=== PATIENT | female | born 1970 | race Caucasian/White ===

== ENCOUNTER 2019-10-05 12:43 | Outpatient (REF) | payer OTHER, SELFPAY ==
--- NOTE | 2019-10-05 11:30 | PAPFT_PTH ---
PATIENT: Molly Jara LOC: [facility] U#:[id number] AGE/SX: 49/F ROOM: RE10/05/[address]: Purnima Lima MD : 1970 BED: DIS: 10/05/2019 SPEC #: [id number] RECD: 10/06/19 12:54 STATUS: NESTOR REKatelynn #: [id number] ALYSON: 10/05/19 11:[address]: Purnima Lima DEPT: [facility] Cytology RECD BY: Mima Rosario Tissues: 1 - CX/ENDOCX FOR PAP SMEARS Procedures: PAP THIN PREP/UVM Screening HPV DNA PROBE Comments: [id number]
== END 2019-10-05 13:03 ==
LOC: LBN 12:43
PROVIDERS: PCP Family Medicine; Visit Provider Family Medicine
DX: Z12.4 Encounter for screening for malignant neoplasm of cervix (principal); Z11.51 Encounter for screening for human papillomavirus (HPV)
CPT/HCPCS: 88142; 87624

== ENCOUNTER 2020-10-18 01:13 | Outpatient (CLI) | payer OTHER, SELFPAY ==
[2020-10-18 14:49] LABS: Calculated LDL 120 mg/dL (<100); Cholesterol 232 mg/dL (<200); Glucose 83 mg/dL (74-106); HDL Cholesterol 104 mg/dL (40-60); Triglyceride 44 mg/dL (<150)
== END 2020-10-18 01:33 ==
PROVIDERS: PCP Family Medicine; Visit Provider Family Medicine
DX: Z13.1 Encounter for screening for diabetes mellitus (principal); Z13.220 Encounter for screening for lipoid disorders
CPT/HCPCS: 36415; 80061; 82947

== ENCOUNTER 2021-05-22 01:29 | Outpatient (CLI) | payer OTHER, SELFPAY ==
--- NOTE | 2021-05-22 06:30 | DI.MAMMO_ITS ---
Exam(s) MAMMO SCREENING EXAM: MAMMO SCREENING CLINICAL HISTORY: screening,Z12.39 TECHNIQUE: Mammograms were interpreted according to the usual protocol including computer analysis w [employer] CAD system, tomosynthesis and C-view imaging. COMPARISON: No exams were available for comparison. Baseline examination. FINDINGS: The breasts are composed of scattered fibroglandular densities, Breast Density category B. No suspicious masses or suspicious microcalcifications are seen. No skin thickening or abnormal axillary lymph nodes are seen. IMPRESSION: BI-RADS Category 1, Negative mammogram Yearly screening mammography is recommended. Breast Density - Category B, scattered fibroglandular densities. A negative radiographic report should not delay biopsy if a dominant or clinically suspicious mass is present. Up to ten percent of cancers are not identified on mammography. A negative report may reinforce clinical impression. Adenosis and dense breasts may obscure an underlying neoplasm. False positive reports average 6 to 10%. Patient will receive a letter notifying them of these results.
== END 2021-05-22 01:49 ==
PROVIDERS: PCP Family Medicine; Visit Provider Family Medicine
DX: Z12.31 Encounter for screening mammogram for malignant neoplasm of breast (principal)
CPT/HCPCS: 77063; 77067

== ENCOUNTER 2021-11-07 03:46 | Outpatient (CLI) | payer OTHER, SELFPAY ==
[2021-11-07 08:21] LABS: HCT 39.2 % (36.0-46.0); HGB 12.2 g/dL (11.2-15.7); MCH 27.2 pg (27.0-33.0); MCHC 31.1 % (32.0-36.0); MCV 87.5 fL (80-95); MPV 9.3 fL (8.0-11.0); Platelet Count 271 10^3/uL (130-400); RBC 4.48 10^6/uL (3.93-5.22); RDW 13.6 % (11.7-14.6); RDW-SD 43.8 fL; WBC 5.01 10^3/uL (4.4-10.8)
[2021-11-07 09:17] LABS: Iron 41 ug/dL (50-170); Total Iron Binding Capacity 319 ug/dL (250-450); Transferrin Sat 13 % (15-50)
[2021-11-07 09:37] LABS: ALT 36 U/L (14-59); AST 28 U/L (15-37); Albumin 3.7 g/dL (3.4-5.0); Alkaline Phosphatase 84 U/L (46-116); Anion Gap 4.3 mmol/L (3-11); BUN 12 mg/dL (7-18); Bilirubin, Total 0.2 mg/dL (0.2-1.0); CO2 26.7 mmol/L (21.0-32.0); CREATININE 0.8 mg/dL (0.55-1.02); Calcium 8.7 mg/dL (8.5-10.1); Calculated LDL 101 mg/dL (<100); Chloride 106 mmol/L (98-107); Cholesterol 226 mg/dL (<200); Glucose 91 mg/dL (74-106); HDL Cholesterol 116 mg/dL (40-60); Potassium 4.4 mmol/L (3.5-5.1); Sodium 137 mmol/L (136-145); Total Protein 7.3 g/dL (6.4-8.2); Triglyceride 47 mg/dL (<150)
[2021-11-07 18:00] LABS: Ferritin 6 ng/mL (10-291)
== END 2021-11-07 03:47 | disposition home or self-care (01) ==
LOC: LBO 03:46
PROVIDERS: PCP Family Medicine; Visit Provider Family Medicine
DX: D50.9 Iron deficiency anemia, unspecified (principal); E78.5 Hyperlipidemia, unspecified; I10 Essential (primary) hypertension
CPT/HCPCS: 80053; 80061; 85027; 82728; 83540; 83550

== ENCOUNTER → 2023-05-21 00:40 | Outpatient (CLI) | payer OTHER, SELFPAY ==
--- NOTE | 2023-05-21 06:45 | DI.MAMMO_ITS ---
Exam(s) MAMMO SCREENING EXAM: MAMMO SCREENING CLINICAL HISTORY: screening, Z12.39 TECHNIQUE: Mammograms were interpreted according to the usual protocol including computer analysis w [employer] CAD system, tomosynthesis and C-view imaging. COMPARISON: 2020 FINDINGS: The breasts are composed of scattered fibroglandular densities, Breast Density category B. No suspicious masses or suspicious microcalcifications are seen. No skin thickening or abnormal axillary lymph nodes are seen. There has been no significant change from prior exams. IMPRESSION: BI-RADS Category 1, Negative mammogram Yearly screening mammography is recommended. Breast Density - Category B, scattered fibroglandular densities. A negative radiographic report should not delay biopsy if a dominant or clinically suspicious mass is present. Up to ten percent of cancers are not identified on mammography. A negative report may reinforce clinical impression. Adenosis and dense breasts may obscure an underlying neoplasm. False positive reports average 6 to 10%. Patient will receive a letter notifying them of these results.
== END ==
PROVIDERS: PCP Nurse Practitioner Family; Visit Provider Nurse Practitioner Family
DX: Z12.31 Encounter for screening mammogram for malignant neoplasm of breast (principal)
CPT/HCPCS: 77063; 77067

== ENCOUNTER 2024-03-12 13:01 | Emergency (ER) | payer OTHER, SELFPAY ==
--- NOTE | 2024-03-12 13:45 | DI.RAD_ITS ---
Exam(s) XR ANKLE RT COMPLETE XR TIB/FIB RT EXAM: XR ANKLE RT COMPLETE CLINICAL HISTORY: pain and swelling. TECHNIQUE: 2D digital imaging was performed. Three views of the ankle. Two views of the tibia and fibula COMPARISON: CR,XR XR TIB/FIB RT from 03/12/2024 CR XR ANKLE LT COMPLETE from 03/12/2024 FINDINGS: BONES: Comminuted fracture of distal fibula with lateral angulation and displacement. Fracture exten ding transversely through the medial malleolus with significant separation. Additional fracture exte nding in the coronal plane through the posterior malleolus. Abnormal lateral and posterior dislocat ion of the talus with respect to the distal tibia. No additional fractures are seen more superiorly. Talar dome appears intact. No bony destructive lesion is seen. JOINTS: Significant disruption of ankle mortise. Knee is unremarkable. SOFT TISSUE: Marked soft tissue swelling. IMPRESSION: Severely displaced trimalleolar fracture with posterolateral tibiotalar dislocation. DATA REPOSITORY: RADIATION DOSE DELIVERED:
[2024-03-12 13:59] VITALS: BP 120/82; PULSE 86; RESP 16; TEMP 36.6; O2SAT 98
[2024-03-12] MEDS: HYDROmorphone 2 MG/ML SYR 1 MG IVP (14:01)
--- NOTE | 2024-03-12 15:12 | DI.VRAD_ITS ---
Addendum created by Amaury Chowdhury MD on 03/12/2024 3:14:32 PM EDT: Addendum: Displaced posterior malleolar fracture Initial report created on 03/12/2024 3:12:25 PM EDT: PROCEDURE INFORMATION: Exam: XR Right Ankle Exam date and time: 03/12/2024 2:07 PM Age: 53 years old Clinical indication: Injury or trauma; Fall; Fracture, traumatic; Open fracture, type i or ii; Tibia and ankle; Right; Not specified TECHNIQUE: Imaging protocol: Radiologic exam of the right ankle. Views: 3 or more views. COMPARISON: CR XR TIB/FIB RT 03/12/2024 2:07 PM FINDINGS: Bones/joints: Comminuted displaced spiral oblique fracture of the distal fibula.. Displaced fracture of the medial malleolus. Dislocation of the tibiotalar joint. The talus is posterior and lateral to the tibia.. Soft tissues: Extensive soft tissue swelling of the ankle IMPRESSION: 1. Comminuted displaced spiral oblique fracture of the distal fibula.. 2. Displaced fracture of the medial malleolus. 3. Dislocation of the tibiotalar joint. The talus is posterior and lateral to the tibia.. Dictated and Authenticated by: Amaury Chowdhury MD. Ordering:HI Guillermo MD
[2024-03-12] MEDS: Ketamine 500 MG/10 ML VIAL 71 MG IVP (15:14)
--- NOTE | 2024-03-12 15:14 | DI.VRAD_ITS ---
PROCEDURE INFORMATION: Exam: XR Right Tibia and Fibula Exam date and time: 03/12/2024 2:07 PM Age: 53 years old Clinical indication: Injury or trauma; Fall; Fracture, traumatic; Open fracture, type i or ii; Fibula and ankle; Right; Not specified TECHNIQUE: Imaging protocol: Radiologic exam of the right tibia and fibula. Views: 2 views. COMPARISON: No relevant prior studies available. FINDINGS: Bones/joints: Displaced spiral oblique fracture in the distal fibula. Displaced medial malleolar fracture. . Tibiotalar dislocation. . Posterior malleolar fracture. Soft tissues: Soft tissue swelling of the ankle IMPRESSION: 1. Displaced spiral oblique fracture in the distal fibula and posterior malleolar fracture. . 2. Displaced medial malleolar fracture. . 3. Tibiotalar dislocation. Dictated and Authenticated by: Amaury Chowdhury MD. Ordering:HI Guillermo MD
--- NOTE | 2024-03-12 15:15 | DI.RAD_ITS ---
Exam(s) XR ANKLE RT COMPLETE EXAM: XR ANKLE RT COMPLETE CLINICAL HISTORY: post reduction. TECHNIQUE: 2D digital imaging was performed. Three views. COMPARISON: CR,XR XR ANKLE RT COMPLETE from 03/12/2024 FINDINGS: A splint has been placed. There is improved alignment of the previously noted trimalleolar fracture. The talus is now located beneath the distal tibia. DATA REPOSITORY: RADIATION DOSE DELIVERED:
[2024-03-12 15:23] VITALS: BP 175/85; PULSE 129; RESP 19; O2SAT 96
--- NOTE | 2024-03-12 15:23 | W.ED.PROC ---
Date of service: 03/12/24 Time of Service: 15:23 Procedures Procedural Sedation Presedation Evaluation: NPO since this AM; procedural sedation for right trimal fracture lower extremity; consent obtained, timeout performed; respiratory and nursing staff at bedside ASA Class: I Preparation: cardiac monitor technician applied, pulse oximeter, capnometry used, suction/airway equipment at bedside and IV secured Ketamine: IV Ketamine dose (mg): 71 Patient Tolerated Procedure: well Complications: none Additional Comments: patient resting, tolerated procedure well, returning to baseline, will continue to monitor hemodynamic and respiratory status,will obtain post reduction xray Medical Decision Making Quality:SDOH Health Related Social Needs: No Data to Display
--- NOTE | 2024-03-12 15:25 | NUR.NOTE ---
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 Pt tolerated well without obvious discomfort or pain. in room at bedside. RT present. Pt continues on monitor with end tidal CO2 monitor in place. Will continue to monitor as sedation wears off.
--- NOTE | 2024-03-12 15:37 | RESPIRATORY ---
Respiratory Therapy on emergency stand by for conscious sedation. Ambu bag, ETC02, suction, and nasal airway at bedside. Patient maintained Sp02 97-98% on room air. Procedure tolerated well.
--- NOTE | 2024-03-12 15:59 | DI.VRAD_ITS ---
PROCEDURE INFORMATION: Exam: XR Right Ankle Exam date and time: 03/12/2024 3:32 PM Age: 53 years old Clinical indication: Other: Post reduction TECHNIQUE: Imaging protocol: Radiologic exam of the right ankle. Views: 3 or more views. COMPARISON: CR XR ANKLE RT COMPLETE 03/12/2024 2:07 PM FINDINGS: Bones/joints: Improved alignment of a distal fibular fracture and medial malleolar fracture and posterior malleolar fracture .. Improved alignment of the tibiotalar joint.. Soft tissues: Soft tissue swelling of the ankle IMPRESSION: 1. Improved alignment of a distal fibular fracture and medial malleolar fracture and posterior malleolar fracture .. 2. Improved alignment of the tibiotalar joint.. Dictated and Authenticated by: Amaury Chowdhury MD. Ordering:HI Guillermo MD
[2024-03-12 16:35] VITALS: BP 124/70; PULSE 72; RESP 16; TEMP 36.6; O2SAT 98
[2024-03-12] MEDS: Ondansetron 4 MG/2 ML VIAL (16:38)
--- NOTE | 2024-03-12 21:35 | W.ED.GENAD ---
Discharge Plan Disposition Patient Disposition: Home Condition: Stable Discharge Details Clinical Impression: Closed trimalleolar fracture Primary Care Provider: Alfredo Odom ED Provider: Mima Escalante Home Meds and New Rx's Prescriptions: New oxycodone 5 mg capsule 5 mg PO Q8H PRNQty: 10 0RF Continued cholecalciferol (vitamin D3) 50 mcg (2,000 unit) tablet,chewable 50 mcg PO BID zinc 50 mg tablet 50 mg PO DAILY magnesium glycinate 100 mg tablet 200 mg PO BID Discharge Instructions Instructions: How to Use Crutches, Cast Care ED Additional Instructions: Take ibuprofen 600 mg every dialysis. Take Tylenol 650 mg every 6 hours, do not exceed 4 g of Tylenol daily I am giving you a prescription for oxycodone, this medication can cause addiction, constipation, and you should not operate your vehicle for 8 hours after taking this medication, please use sparingly Orthopedics will call you tomorrow if you do not hear from them by the end of the day my recommendation will be to call the office for follow-up If you have pain my recommendation is to elevate your ankle and place ice on it with Tylenol and ibuprofen orally Please return to develop worsening pain, strength or sensation change, or discoloration to your toes Referrals: Valerio Mcdaniels MD [ [facility] STAFF PHYSICIAN] - Discharge Data Discharge Date/Time-TO BE ENTERED AT DEPARTURE: 03/12/24 16:38 HPI General Date/Time Provider Initiated Documentation: 03/12/24 13:27. HPI Narrative: This 53-year-old female with past medical history of hepatitis presents with report of right ankle injury. She states she stepped on 1 step and twisted her ankle. She has been able to walk on it since the event occurred. She denies any additional complaints. Tetanus is up-to-date. She denies any knee pain. Denies any head injury or additional required injuries. Related Data Home Medications Medication Instructions Recorded Confirmed magnesium glycinate 100 mg tablet 200 mg PO BID 11/06/23 02/23/24 zinc 50 mg tablet 50 mg PO DAILY 11/06/23 02/23/24 cholecalciferol (vitamin D3) 50 50 mcg PO BID 02/23/24 02/23/24 mcg (2,000 unit) chewable tablet oxycodone 5 mg capsule 5 mg PO Q8H PRN #10 caps 03/12/24 Previous Rx's Medication Instructions Recorded oxycodone 5 mg capsule 5 mg PO Q8H PRN #10 caps 03/12/24 Allergies Allergy/AdvReac Type Severity Reaction Status Date / Time codeine Allergy Intermediate Skin Rash Verified 02/23/24 08:50 latex Allergy Intermediate Skin Rash Verified 02/23/24 08:50 ampicillin Allergy Unknown Hives Verified 02/23/24 08:50 Penicillins AdvReac Unknown Nausea Verified 02/23/24 08:50 General Stated Complaint: Orthopedic MARY: 3 Exam Narrative Exam Narrative: 53-year-old female alert and oriented, acute distress secondary to right ankle pain. No visible signs of head trauma or neck discomfort, pupils equal round reactive to light and accommodation distal pulses intact to right lower extremity, no respiratory distress, cardiac rate rhythm regular, no abdominal tenderness, no lumbar spine or thoracic spine tenderness, small abrasion which is superficial, no evidence of open fracture to right ankle on the medial aspect, examined both the patient and x-ray and there is no evidence of this being an open fracture clinically, obvious deformity noted to ankle, capillary refill, pulses, and sensation remain intact. Mild tenderness to right knee Course Vital Signs Vital signs: Vital Signs Temperature 36.6 C 03/12/24 13:59 Pulse 86 03/12/24 13:59 Respiratory Rate 16 03/12/24 13:59 Blood Pressure 120/82 03/12/24 13:59 Pulse Oximetry 98 03/12/24 13:59 Temperature 36.6 C 03/12/24 16:35 Temperature Source Tympanic 03/12/24 13:59 Pulse 72 03/12/24 16:35 Respiratory Rate 16 03/12/24 16:35 Respiratory Effort Normal 03/12/24 14:53 Blood Pressure 124/70 03/12/24 16:35 Blood Pressure Position Sitting 03/12/24 13:59 Pulse Oximetry 98 03/12/24 16:35 Oxygen Delivery Method Room Air 03/12/24 15:23 Oxygen Flow Rate 0 03/12/24 15:23 Pain Level 2 03/12/24 16:35 Procedures Orthopedic Fracture Reduction Fracture #1: Time Out Performed: Yes Side: right Fracture Reduction Location: tibia and fibula Analgesia: procedural sedation Technique: direct manipulation and finger traps Post Reduction X-rays Demonstrate: acceptable reduction Post-reduction neuro exam: intact Post-reduction vascular exam: intact Splint Applied: Yes Patient Tolerated Procedure: well Medical Decision Making 53-year-old female presenting with trimalleolar fracture dislocation. Neurovascularly intact. No evidence of open fracture clinically. X-rays show evidence of trimalleolar fracture with ankle dislocation. per my review and radiology interpretation where available Case was discussed with Dr. Mcdaniels and reduction was performed with good effect. Pre and post films reviewed ankle with Dr. Mcdaniels will follow-up with patient in the close outpatient setting. Patient tolerated procedural sedation extremely well, please see Dr. William Victoria's note regarding procedural sedation. Posterior and stirrup splint were applied and patient remained neurovascularly intact pre and postprocedure. Patient was recovered and deemed stable for discharge home. Small amount of IV analgesia with risk of addiction reviewed. We discussed appropriate return precautions in detail and patient and expressed understanding. Crutches supplied Quality:SDOH Health Related Social Needs: No Data to Display PFSH All Active Problems (Updated 03/12/24 @ 15:49 by RICARDO Novak) Closed trimalleolar fracture (Acute) Hypertension (Chronic) Eczema (Acute) Low back pain with right-sided sciatica (Acute) 2021- mild managed with exercises Venous stasis (Acute) mild edema -legs Hyperlipidemia (Acute) 2020- high HDL Iron deficiency anemia (Acute 12/22/12) aasoc with [employer] losses Substance abuse (Acute) H/O IV DRUG ABUSE Viral hepatitis C (Acute 04/06/13) 2020-tx/resolved Medical History Contact dermatitis Menorrhagia (03/06/15) Hepatitis C Surgical History Hysteroscopy (03/14/15) FIBROID RESECTION (03/14/15) Dilation and curettage (03/14/15) Family History Mother Essential hypertension Father Diabetes Alcohol abuse Essential hypertension Neoplasm LIVER Grandmother Essential hypertension Stroke Grandfather Essential hypertension Stroke Grandmother Essential hypertension Neoplasm Social History Smoking/Tobacco Use Status: Former Tobacco Use tobacco type: cigarettes Quit Date: 09/20/99 Tobacco: How many years used: 15 Second Hand Exposure: Yes Smoking risk assessment performed?: Yes Alcohol Intake: former Drug use: Never Substance use type: does not use Caregiver/Support person: No Household members: spouse Housing: house Communication Needs: Corrective Lenses Do you need help understanding health information?: Never Pets and animals: Yes Pets and animals: cat(s) Sexually active: Yes Do you think of yourself as: straight/heterosexual Current gender identity: female What is your relationship status?: How often do you talk on the phone with friends or family?: decline to answer How often do you get together with friends or relatives?: decline to answer How often do you attend hindu or christianity services?: decline to answer Do you belong to any clubs or organized social groups?: decline to answer Panel score (0-1 are the most socially isolated patients): 1 What type of physical activity do you participate in: bicycling and yoga Duration: 30-45 minutes/day Frequency: daily Yasmine/Oriental Orthodox: None Special yasmine needs: No Seatbelt use: always Helmet use: Yes Helmet use: always Drive intox or ride w/intox jukebox route driver: No Do you feel safe at home: Yes Do you feel safe in your relationship?: Yes
== END 2024-03-12 16:38 | disposition home or self-care (01) ==
PROVIDERS: Emergency Provider Physician Assistant; PCP Nurse Practitioner Family
DX: S82.851A Displaced trimalleolar fracture of right lower leg, initial encounter for closed fracture (principal); I10 Essential (primary) hypertension; E78.5 Hyperlipidemia, unspecified; Z87.891 Personal history of nicotine dependence; X50.1XXA Overexertion from prolonged static or awkward postures, initial encounter; Y93.01 Activity, walking, marching and hiking; Y92.89 Other specified places as the place of occurrence of the external cause
CPT/HCPCS: 27818; 99156; 99284; 73590; 73610; J1170; J2405

== ENCOUNTER 2024-03-15 06:12 | Day surgery (SDC) | payer OTHER, SELFPAY ==
[2024-03-15] VITALS (15 sets, daily range): BP systolic 113–147; BP diastolic 61–96; PULSE 60–76; RESP 10–18; TEMP 36.2–37.3; O2SAT 95–100; BMI 28.3
[2024-03-15] MEDS: Acetaminophen 500 MG TAB 1000 MG PO (06:49)
--- NOTE | 2024-03-15 07:04 | W.ANESPRE ---
General Info Date of Service Date Performed: 03/15/24 Height: 5 ft 3 in Weight: 72.7 kg Body Mass Index (BMI): 28.3 Surgical Procedure: Operation Date: 03/15/24 08:10 Proposed Procedure Side Surgeon p Ankle ORIF Right Landon Miranda MD Pre-Op Diagnosis Post-Op Diagnosis Right ankle trimalleolar fracture Meds Allergies and Home Medications Allergies Allergy/AdvReac Type Severity Reaction Status Date / Time codeine Allergy Intermediate Skin Rash Verified 03/15/24 06:39 latex Allergy Intermediate Skin Rash Verified 03/15/24 06:39 ampicillin Allergy Unknown Hives Verified 03/15/24 06:39 Penicillins AdvReac Unknown Hives Verified 03/15/24 06:39 Home Medication Medication Instructions Recorded magnesium glycinate 100 mg tablet 200 mg PO BID 11/06/23 zinc 50 mg tablet 50 mg PO DAILY 11/06/23 cholecalciferol (vitamin D3) 50 50 mcg PO BID 02/23/24 mcg (2,000 unit) chewable tablet oxycodone 5 mg capsule 5 mg PO Q8H PRN #10 caps 03/12/24 ibuprofen 200 mg tablet (Advil) 400 mg PO Q4H PRN 03/13/24 Current Visit Medications: Current Medications Generic Name Dose Route Start Last Admin Trade Name Freq PRN Reason Stop Dose Admin Acetaminophen 1,000 mg 03/15/24 06:00 03/15/24 06:49 Acetaminophen 500 Mg Tab PO 04/13/24 23:59 1,000 mg PREOP GAUTAM Administration Celecoxib 400 mg 03/15/24 06:00 Celecoxib 200 Mg Cap PO 04/13/24 23:59 PREOP GAUTAM Ringer's Solution 1,000 mls @ 80 mls/hr 03/15/24 06:00 IV 04/13/24 23:59 INFUSION GAUTAM Cefazolin Sodium/Dextrose 2 gm in 50 mls @ 100 mls/hr 03/15/24 06:00 Ancef Duplex IVPB 04/13/24 23:59 PREOP GAUTAM Tranexamic Acid/Sodium Chloride 1,000 mg in 100 mls @ 600 mls/hr 03/15/24 06:00 IVPB 04/13/24 23:59 PREOP GAUTAM IV Miscellaneous Supplies 1 each 03/15/24 06:00 Iv Access IV 04/13/24 23:59 DIRECTED GAUTAM Sodium Chloride 0 ml 06/26/24 06:00 Normal Saline Flush 10 Ml Syr IV 04/13/24 23:59 PRN PRN Sodium Chloride 0 ml 03/15/24 06:00 Normal Saline 10 Ml Vial IJ 04/13/24 23:59 DIRECTED PRN Sterile Water 0 ml 03/15/24 06:00 Water,Injection,Sterile 10 Ml Vial IJ 04/13/24 23:59 DIRECTED PRN PFSH Active Problems Active Problems: Problem Status Onset Code Closed trimalleolar fracture S82.853A Hypertension I10 Eczema L30.9 Low back pain with right-sided sciatica M54.41 Venous stasis I87.8 Hyperlipidemia E78.5 Iron deficiency anemia 12/22/12 D50.9 Substance abuse F19.10 Viral hepatitis C 04/06/13 B19.20 Medical History Medical History Contact dermatitis Menorrhagia (03/06/15) Hepatitis C Surgical History Surgical History Hysteroscopy (03/14/15) FIBROID RESECTION (03/14/15) Dilation and curettage (03/14/15) Tobacco Smoking/Tobacco Use Status: Former Tobacco Use Passive smoking exposure: Yes Second hand exposure: Yes Alcohol Alcohol Intake: former Substance Use Substance use: Never Substance use type: does not use Vital Signs and Lab Results Vital Signs Most Recent Vital Signs in EMR: Most Recent Vital Signs Temp Pulse Resp BP Pulse Ox 37 C 76 16 147/77 H 100 03/15/24 06:39 03/15/24 06:39 03/15/24 06:39 03/15/24 06:39 03/15/24 06:39 Point of Care Results Point of Care Results: POC- Test(urine) Negative 03/15/24 06:47 Lab Results Blood Type / Crossmatch: No Data to Display Complete Blood Count: No Data to Display Complete Metabolic Panel: No Data to Display Liver Function Panel: No Data to Display Coagulation Panel: No Data to Display Cardiac Panel: No Data to Display Arterial Blood Gas: No Data to Display Venous Blood Gas: No Data to Display Pancreas Panel: No Data to Display Thyroid Panel: No Data to Display Infectious Disease: No Data to Display Blood Cultures: No Data to Display Toxicology Panel: No Data to Display Panel: No Data to Display Anesthesia Assessment and Plan Anesthesia History Personal History: No History of Anesthesia Complications Family History: No Family History of Anesthesia Complications Exercise Tolerance Exercise Tolerance: Metabolic Equivalents>4 Pertinent Negatives Pertinent Negatives: No Major Cardiovascular Symptoms or Complaints, No Major Pulmonary Symptoms or Complaints and No History of CVA/TIA Cardiac & Pulmonary Exam Cardiac Exam: Normal S1/S2 Heart Sounds Pulmonary Exam: Clear Bilateral Breath Sounds Implantable Cardiac Device Does patient have a Pacemaker or an ICD?: No Airway Exam Known Difficult Airway: No Mallampati Class: 2 Mouth Opening: Normal (> 3cm) Thyromental Distance: Greater than 3 cm Neck Range of Motion: Full ROM Neck Circumference: Normal Teeth Condition: Normal Dentition ASA Classification ASA Score: ASA 2 Emergency Case?: No NPO Status NPO Status: NPO Clears >2 hours, Solids >8 hours Status Status: Negative HCG Anesthesia Plan Resuscitation Status: Full Code Anesthesia Technique: General Anesthesia Airway Planned: LMA Pain Management: Surgeon and patient request nerve block Monitors Used: Standard Monitors
[2024-03-15] MEDS: Lactated Ringers 1,000 ML 80 ML IV (07:09)
--- NOTE | 2024-03-15 07:17 | W.PM.DSUDISC ---
Date of service: 03/15/24 Time of Service: 07:17 Discharge Plan Disposition Patient Disposition: Home Condition: Good Discharge Details Reason For Visit: ORIF R Ankle Attending Provider: Landon Miranda Primary Care Provider: Alfredo Odom Home Meds and New Rx's Prescriptions: New acetaminophen 500 mg tablet 1,000 mg PO TID Qty: 90 3RF ibuprofen 600 mg tablet 600 mg PO TID PRNQty: 90 3RF oxycodone 5 mg tablet 5 mg PO Q8H MDD 15mg PRN (Reason: pain) Qty: 10 0RF Continued cholecalciferol (vitamin D3) 50 mcg (2,000 unit) tablet,chewable 50 mcg PO BID zinc 50 mg tablet 50 mg PO DAILY magnesium glycinate 100 mg tablet 200 mg PO BID Discontinued oxycodone 5 mg capsule 5 mg PO Q8H PRNQty: 10 0RF ibuprofen [Advil] 200 mg tablet 400 mg PO Q4H PRN Discharge Instructions Additional Instructions: Ankle ORIF Discharge Instructions Activity: You are NON WEIGHT BEARING. You should keep the leg elevated as much as possible. You may wiggle your toes and move your hip and knee. Dressings: You should keep your splint clean and dry. Do NOT get wet or dirty. If you have issues with your splint, please call the office at [phone] or the hospital after hours. Medications: - You should take Tylenol and Ibuprofen around the clock for baseline pain. - You have been prescribed a stronger narcotic for breakthrough pain. - You should take a Baby Aspirin (81mg) twice a day for blood clot prevention. Follow-up: 2 weeks Stand Alone Forms: Anesthesia Discharge Inst., Anes.Sugammadex Interaction, Anes.Nerve Block Instructions, Crutch Training Instructions, Chandu Booker (DSU) Referrals: Landon Miranda MD [ [facility] STAFF PHYSICIAN] - 03/27/24 11:00 am Equipment/Supplies: Non-Weight Bearing Crutches Activity:: Elevate Remove Dressings/Wound Care:: Do Not Remove Shower/Bathe:: Cover Diet:: As Tolerated Discharge Orders Discharge Orders: Discharge Order (Routine); Ordered 03/15/24 Ordered By: Rico Khalil DS: Diagnosis Discharge Diagnosis (1) Closed trimalleolar fracture: Status: Acute
--- NOTE | 2024-03-15 07:23 | HPE_ITS ---
Assessment and Plan Assessment and plan (1) Closed trimalleolar fracture: Status: Acute Assessment and plan: Molly is a 53-year-old female who unfortunate suffered a mechanical fall resulting in a trimalleolar ankle fracture dislocation about the right ankle. Given the fracture pattern I recommended operative fixation. She has been diligently elevating this foot at home. However, wound healing and swelling will be a challenge given the nature of the fracture. Nevertheless, it makes most sense to proceed with fixation soon as possible. I discussed this with her over the phone on Wednesday. I once again reviewed all that today. I discussed t he technical details of ankle fracture surgery. I reviewed the basis of what we be doing today including fixation of all 3 malleoli most likely. Brief evaluation of the skin shows no changes to suggest that we can proceed today with surgery although closure may still be challenging and there may be some issues with wound healing. I also reviewed other risk to include bleeding, infection, pain, stiffness, damage to nerves, including the superficial peroneal nerve, hardware prominence, hardware failure, malunion, nonunion, ankle stability, blood clot. Despite these risk, she elects to proceed. History of Present Illness History of Present Illness Chief Complaint: Right ankle fracture dislocation Narrative: Molly is a 53-year-old active female who unfortunately had a mechanical fall landing awkwardly onto her right ankle when missing a step with immediate pain and deformity on March 12. She was seen in the emergency department over the weekend and diagnosed with an ankle fracture dislocation. Closed reduction was performed she was splinted. She denies any numbness or tingling. She has had some pain but has been controlled with oral medications. She is been keeping it elevated and moving her toes is much as possible. She reports history of venous insufficiency. She has no history of diabetes. She exercises regularly but does express some concern about her bone quality. She denies any recent illnesses. No chest pain or shortness of breath. Review of Systems All systems reviewed & are unremarkable except as noted in HPI and below PFSH All Active Problems Closed trimalleolar fracture (Acute 03/12/24) RIGHT S/P ORIF: 03/15/2024 Hypertension (Chronic) Eczema (Acute) Low back pain with right-sided sciatica (Acute) 2021- mild managed with exercises Venous stasis (Acute) mild edema -legs Hyperlipidemia (Acute) 2020- high HDL Iron deficiency anemia (Acute 12/22/12) aasoc with [employer] losses Substance abuse (Acute) H/O IV DRUG ABUSE Viral hepatitis C (Acute 04/06/13) 2019-tx/resolved Medical History Contact dermatitis Menorrhagia (03/06/15) Hepatitis C Surgical History Hysteroscopy (03/14/15) FIBROID RESECTION (03/14/15) Dilation and curettage (03/14/15) Family History Mother Essential hypertension Father Diabetes Alcohol abuse Essential hypertension Neoplasm LIVER Grandmother Essential hypertension Stroke Grandfather Essential hypertension Stroke Grandmother Essential hypertension Neoplasm Social History Smoking/Tobacco Use Status: Former Tobacco Use tobacco type: cigarettes Quit Date: 09/20/99 Tobacco: How many years used: 15 Second Hand Exposure: Yes Smoking risk assessment performed?: Yes Alcohol Intake: former Drug use: Never Substance use type: does not use Caregiver/Support person: No Household members: spouse Housing: house Communication Needs: Corrective Lenses Do you need help understanding health information?: Never Pets and animals: Yes Pets and animals: cat(s) Sexually active: Yes Do you think of yourself as: straight/heterosexual Current gender identity: female What is your relationship status?: How often do you talk on the phone with friends or family?: decline to answer How often do you get together with friends or relatives?: decline to answer How often do you attend congregational or scientology services?: decline to answer Do you belong to any clubs or organized social groups?: decline to answer Panel score (0-1 are the most socially isolated patients): 1 What type of physical activity do you participate in: bicycling and yoga Duration: 30-45 minutes/day Frequency: daily Yasmine/Pentecostal: None Special yasmine needs: No Seatbelt use: always Helmet use: Yes Helmet use: always Drive intox or ride w/intox grab driver: No Additional Social history: [employer] Meds Allergies and Home Medications Allergies Allergy/AdvReac Type Severity Reaction Status Date / Time codeine Allergy Intermediate Skin Rash Verified 03/15/24 06:39 latex Allergy Intermediate Skin Rash Verified 03/15/24 06:39 ampicillin Allergy Unknown Hives Verified 03/15/24 06:39 Penicillins AdvReac Unknown Hives Verified 03/15/24 06:39 Home Medications Medication Instructions Recorded Confirmed Type magnesium glycinate 100 mg tablet 200 mg PO BID 11/06/23 03/15/24 History zinc 50 mg tablet 50 mg PO DAILY 11/06/23 03/15/24 History cholecalciferol (vitamin D3) 50 50 mcg PO BID 02/23/24 03/15/24 History mcg (2,000 unit) chewable tablet acetaminophen 500 mg tablet 1,000 mg (2 x 500 mg) PO TID #90 03/15/24 Rx tabs ibuprofen 600 mg tablet 600 mg PO TID PRN #90 tabs 03/15/24 Rx oxycodone 5 mg tablet 5 mg PO Q8H PRN pain #10 tabs 03/15/24 Rx Exam Const General: cooperative, healthy appearing, comfortable and no acute distress Resp Auscultation: clear to auscultation bilaterally Cardio Rate: regular rate Rhythm: regular rhythm Extrem Other: Evaluation of the right lower extremity shows a posterior slab with stirrup splint. This was removed and evaluated. There is a very small area of abrasion over the anterior medial aspect of the ankle, proximal to the plafond. There is no significant fracture blister appreciated. There is some mild wrinkling of the skin. No skin breakdown is appreciated. There is some indentation from the splint. Sensation intact to light touch over the deep and superficial peroneal nerve and tibial nerve. Palpable DP and PT pulse. Mild edema of the leg itself, 1+, similar to the contralateral side. She is able demonstrate active toe extension and flexion. Results Imaging Imaging Studies: X-ray of the right ankle shows a trimalleolar ankle fracture which was initially dislocated and reduced to a subluxed position. There is comminution of the distal fibula as well as a large posterior malleolar fragment which is also off. There is also displacement of the medial malleolar fragment. No other suspicious lesions appreciated. Last Vital Signs Temp 37 C 03/15/24 06:39 Pulse 76 03/15/24 06:39 Resp 16 03/15/24 06:39 BP 147/77 H 03/15/24 06:39 Pulse Ox 100 03/15/24 06:39
[2024-03-15] MEDS: ceFAZolin 2 GM/50 ML BAG IVPB (07:43)
[2024-03-15] MEDS: TRANEXAMIC ACID/SOD. CHL. 1,000 MG/100 ML BAG 600 MG IVPB (07:56)
--- NOTE | 2024-03-15 08:06 | W.ANESNERVE ---
Nerve Block Single Injection Procedure Date and Time Date Performed: 03/15/24 Procedure Start: 07:30 Location Where Procedure Performed Procedure Location: Day Surgery Unit Reason Performed: Postoperative Analgesia Requesting Provider: Landon Miranda Timeout Performed Timeout Performed: Yes Monitoring Used ECG, Blood Pressure, SpO2 and See EMR for corresponding vital signs Sterility Sterility: Hand Hygiene, Surgical Cap, Surgical Mask, Sterile Gloves and Chlorhexidine Sedation Given During Procedure Sedation Given (Indicate Dose Given): Versed IV Dose:: 2mg Patient Mental Status Patient Mental Status: Sedate with meaningful communication Nerve Block 1st Nerve Block: Laterality: Right Block Type: Popliteal Sciatic Ultrasound Image Saved?: Yes Needle / Catheter Used: 100mm SonoPlex II Local Anesthetic Bolus (Indicate Dose Given): Lidocaine used for local infiltration of skin, Injected in 3-5ml increments after negative blood aspiration, Bupivacaine 0.5% Dose:: 15ml and Exparel Dose:: 10ml Additives (Indicate Dose Given): Normal Saline (5ml) Ultrasound: Sterile probe cover and gel used Nerve Stimulator: Not Used (Ankle fracture with discomfort) Paresthesia: None Procedure Tolerated: No Complications and Patient tolerated well Procedure Outcome: Successful Procedure Comment: present, straight forward. Performed By: Yordan Valdes 2nd Nerve Block: Laterality: Right Block Type: Adductor Canal Ultrasound Image Saved?: Yes Needle / Catheter Used: 100mm SonoPlex II Local Anesthetic Bolus (Indicate Dose Given): Lidocaine used for local infiltration of skin, Injected in 3-5ml increments after negative blood aspiration, Bupivacaine 0.25% Dose:: 10ml and Exparel Dose:: 10ml Additives (Indicate Dose Given): None Ultrasound: Sterile probe cover and gel used Nerve Stimulator: Not Used Paresthesia: None Procedure Tolerated: No Complications and Patient tolerated well Procedure Outcome: Successful Performed By: Yordan Valdes
--- NOTE | 2024-03-15 09:54 | DI.RAD_ITS ---
Exam(s) XR ANKLE RT 2V EXAM: XR ANKLE RT 2V CLINICAL HISTORY: Right ankle trimalleolar fracture. TECHNIQUE: 2D and realtime digital imaging was performed. COMPARISON: CR,XR XR ANKLE RT COMPLETE from 03/12/2024 FINDINGS: Hard copy images show placement of a fixation plate along the distal fibula for fracture fixation. T wo screws have been placed in the medial malleolus. The fracture alignment is now anatomic. Ankle m ortise is congruent. Please see procedure note for details. Fluoro time: 1 minute 34seconds RADIATION DOSE DELIVERED: janet Carlson=3.09 mGy
--- NOTE | 2024-03-15 11:16 | W.ANESPOSTOP ---
Postoperative Evaluation Date, Time and Location Date Performed: 03/15/24 Time Performed: 11:17 Patient Location: Day Surgery Unit Vital Signs Most Recent Imported Vital Signs: Most Recent Vital Signs Temp Pulse Resp BP Pulse Ox 36.3 C L 63 18 124/96 H 97 03/15/24 10:45 03/15/24 10:45 03/15/24 10:45 03/15/24 10:45 03/15/24 10:45 Pain Score Most Recent Pain Score: Most Recent Pain Score Pain Level 0 03/15/24 10:45 Assessment Mental Status: Awake (Alert & Oriented to Patient Baseline) Airway and Respiratory Function: Patent airway with normal (patient baseline) respiratory exam Cardiovascular Function: Hemodynamically Stable Hydration Status: Adequately Hydrated Nausea & Vomiting: No Nausea or Vomiting Pain: Pt. Denies Any Pain Peripheral Nerve Block: Regional nerve block not resolved at time of post operative discharge Postoperative Comments:: Pt. with no pain, just numb after block but able to move toes.
--- NOTE | 2024-03-15 12:08 | W.PM.OP ---
Date of service: 03/15/24 Time of Service: 08:00 Operative Note Operative Note DATE OF PROCEDURE: 03/15/24 PRE-OP DIAGNOSIS: Right trimalleolar ankle fracture dislocation POST-OP DIAGNOSIS: same PROCEDURE: Open Reduction and Internal Fixation of right ankle -fixation of medial and lateral malleolus SURGEON: Landon Miranda WAX PATTERN REPAIRER: Rico Khalil ANESTHESIA TYPE: General LMA/ETT and Primary Nerve Block Refer to Anesthesia Record ESTIMATED BLOOD LOSS: 200 PATHOLOGY: none sent TOURNIQUET TIME: 0 COMPLICATIONS: None Patient was transported to: PACU Patient's condition: stable Indications: Molly is a 53-year-old female who presented to the Emergency Department after a fall. X-rays confirmed the diagnosis of a trimalleolar ankle fracture dislocation. The dislocation was reduced and she was splinted. I reviewed the possible treatment options and given the fracture, I recommended operative fixation. I discussed the technical details of the surgery. I reviewed the risks such as bleeding, infection, pain, stiffness, malunion, nonunion, hardware prominence, hardware faiilure, malrotation, damage to nerves and vessels, blood clot. Despite these risks, nickel agreed to proceed. Findings: There is a comminuted fracture of the fibula. There are multiple fracture fragments. The fibula was reduced with a bridging plate technique. There was a small posterior medial fragment which I suspected to be unstable. However, after fixing the fibula it was stable unable to be moved by direct and manipulation or by stress testing the ankle. Procedure Description: Molly was greeted in the preoperative area. Consent was previously reviewed and signed. Peripheral nerve block was administered by anesthesia in the day surgery unit. Once in the operating room, a general anesthesia was administered. The patient was transferred to the operating table in the supine position. She was positioned in the supine position with the operative side placed onto a bone foam ramp. All bony prominences were well padded. Arms were placed out to the side, padded, and secured. A nonsterile tourniquet was placed onto the right side but was not used for the case. A single dose of TXA, 1 gram, was then administered IV. Prophylactic antibiotics, Cefazolin 2 grams, was given for prophylactic antibiotics. A timeout was performed for safe surgery. The right leg was prepped with Chloraprep. The leg was draped with a stockinette and extremity drape. A slightly curved incision was then made overlying the medial malleolus. This was taken down sharply to the skin. Saphenous vein was present and was mobilized out of the way. The fracture of this was these identified and was not comminuted. There was some interposed deltoid ligament which was elevated off the fracture edges. The fracture was and visualization of the intra-articular space of the ankle joint was had. Ankle joint was irrigated. There were no loose pieces of loose bodies or cartilage damage appreciated. Attention was then turned to the fibula. The fibula was then approached with a longitudinal incision. This was taken down through the skin sharply. This was by slightly posteriorly. The fascia was entered. For cutting the fascia this was dissected out to ensure there is no branches of the superficial peroneal nerve present. The peroneal musculature was actually quite prominent in this region at a much lower location than expected. The fracture was easily palpable. Mitchell elevator was utilized to elevate off the soft tissues from the fibula to expose the fracture. Fracture was highly comminuted. There is a posterior butterfly fragment which spanned the length of the fracture connecting both of primary distal primary proximal pieces. There was some multiple interfragmentary pieces as well. I was able to bring the fibula back out to length and reduce the 2 major fragments with the interfragmentary piece as a indicator of length. This was held in position with a K wire. Interfragmentary screw was attempted to be placed with the fracture too small and would not hold. Therefore, I proceeded with a bridge plate type technique. With a K wire holding the reduction a distal fibula plate was applied. This was fitted onto the fibula. 2 locking screws were placed distally to hold. The K wire was then removed and the plate was positioned further onto the distal fibula. Reduction was confirmed and a single nonlocking screw was placed proximally. This had excellent fixation with the bringing the plate down to bone. X-ray was utilized to confirm improved positioning of the plate as well as reduction of the fracture. The fracture was also visually inspected and showed no significant signs of malreduction. Additional locking screws were placed distally. 2 additional nonlocking cortical screws were placed proximally. At this point attention was turned to the posterior malleolus of the tibia. It was thought it was going to be unstable. However, it was now well reduced. Direct manipulation of the posterior tibia was unable to show any instability of this fragment. Even with live fluoroscopy there is no motion of the posterior malleolar fragment and there is no noted articular step-off. Therefore, I did not proceed with any posterior malleolar fragment fixation. Attention was turned back to the medial malleolus. Fracture was fully identified and reduced with direct visualization. A K wire from the 4.0 mm cannulated screw system was placed across the fracture which held the fracture well reduced. A second K wire was also placed. X-ray was utilized confirm appropriate positioning of these K wires. Once this was confirmed the screw length was measured. The screw path was overdrilled through the distal fragment. Screws were placed with excellent fixation and compression of the fracture. Final x-rays were obtained including stress view which did not show any significant gapping of the talus or the distal tip?fib space. There did appear to be some injury of the saphenous vein at the conclusion of the case. This area of bleeding from the saphenous vein was cauterized. The wounds were then thoroughly irrigated. They were injected with a mixture of ropivacaine, epinephrine, clonidine, ketorolac. The medial wound was closed with interrupted, buried Vicryl followed by nylon at the level of skin. Some fascia was closed at the distal aspect the plate on the lateral wound. The deep tissues were closed with zero 2-0 Vicryl. The skin was closed with a running nylon suture. At the end of the case, all counts were correct. Molly tolerated the procedure well without known complication and was taken to the PACU for recovery. Physical therapy will start post-operatively, nonweightbearing with a splint.
== END 2024-03-15 12:54 | disposition home or self-care (01) ==
PROVIDERS: PCP Nurse Practitioner Family; Visit Provider Student in an Organized Health Care Education/Training Program
PROC: (CPT 27822; principal; 2024-03-15 08:00)
DX: S82.853A Displaced trimalleolar fracture of unspecified lower leg, initial encounter for closed fracture (principal); X50.1XXA Overexertion from prolonged static or awkward postures, initial encounter
CPT/HCPCS: 27822; 76000; 76942; 81025; 73600; C9290; J0665; J0690; J1100; J2250; J2405; J2704

== ENCOUNTER 2024-03-27 13:14 | Outpatient (CLI) | payer OTHER, SELFPAY ==
--- NOTE | 2024-03-27 11:45 | DI.RAD_ITS ---
Exam(s) XR ANKLE RT COMPLETE EXAM: XR ANKLE RT COMPLETE CLINICAL HISTORY: F/U R ANKLE ORIF. TECHNIQUE: 2D digital imaging was performed. Three views. COMPARISON: CR,XR XR ANKLE RT COMPLETE from 03/12/2024 XA XR ANKLE RT 2V from 03/15/2024 FINDINGS: There has been no change in fracture or hardware alignment from the intraoperative images. Soft tiss ue swelling remains present. IMPRESSION: Stable postsurgical appearance. DATA REPOSITORY: RADIATION DOSE DELIVERED:
== END 2024-03-27 13:15 | disposition home or self-care (01) ==
LOC: DIORS 13:16
PROVIDERS: PCP Nurse Practitioner Family; Visit Provider Student in an Organized Health Care Education/Training Program
DX: S82.851D Displaced trimalleolar fracture of right lower leg, subsequent encounter for closed fracture with routine healing; X50.1XXD Overexertion from prolonged static or awkward postures, subsequent encounter
CPT/HCPCS: 73610

== ENCOUNTER 2024-04-24 11:39 | Outpatient (CLI) | payer OTHER, SELFPAY ==
--- NOTE | 2024-04-24 11:30 | DI.RAD_ITS ---
Exam(s) XR ANKLE RT COMPLETE EXAM: XR ANKLE RT COMPLETE CLINICAL HISTORY: S/P ORIF R ANKLE. TECHNIQUE: 2D digital imaging was performed. COMPARISON: CR XR ANKLE RT COMPLETE from 03/27/2024 FINDINGS: 3 views Hardware appears stable including lateral fixation plate cross distal fibula and 2 screws across the medial malleolus fracture site. Fracture line still faintly visible but without significant displace ment. There is no widening of the ankle mortise. There is a small subarticular lucency in the media l aspect of the talar dome which may represent a small degenerative subarticular cysts. There is no narrowing of the tibiotalar joint itself nor the subtalar joint. No evidence of osteomyelitis. IMPRESSION: Stable appearance DATA REPOSITORY: RADIATION DOSE DELIVERED:
== END 2024-04-24 11:40 | disposition home or self-care (01) ==
LOC: DIORS 11:39
PROVIDERS: PCP Nurse Practitioner Family; Visit Provider Student in an Organized Health Care Education/Training Program
DX: S82.851A Displaced trimalleolar fracture of right lower leg, initial encounter for closed fracture
CPT/HCPCS: 73610

== ENCOUNTER 2024-06-08 12:01 | Outpatient (CLI) | payer OTHER, SELFPAY ==
--- NOTE | 2024-06-08 10:40 | DI.RAD_ITS ---
Exam(s) XR ANKLE RT COMPLETE EXAM: XR ANKLE RT COMPLETE CLINICAL HISTORY: S/P ORIF R ANKLE FX. TECHNIQUE: 2D digital imaging was performed. Three views. COMPARISON: CR XR ANKLE RT COMPLETE from 04/24/2024 FINDINGS: BONES: Stable fracture and hardware alignment. Continued fracture healing. No acute fracture is pre sent. No bony destructive lesion is seen. The bones appear osteopenic from disuse. JOINTS: The ankle mortise is normally aligned. No joint space narrowing. SOFT TISSUE: Soft tissue swelling remains present. IMPRESSION: Continued fracture healing. Stable alignment of hardware. DATA REPOSITORY: RADIATION DOSE DELIVERED:
== END 2024-06-08 12:02 | disposition home or self-care (01) ==
LOC: DIORS 12:02
PROVIDERS: PCP Nurse Practitioner Family; Visit Provider Student in an Organized Health Care Education/Training Program
DX: S82.851D Displaced trimalleolar fracture of right lower leg, subsequent encounter for closed fracture with routine healing (principal); X58.XXXD Exposure to other specified factors, subsequent encounter
CPT/HCPCS: 73610

== ENCOUNTER 2024-12-27 02:04 | Outpatient (CLI) | payer OTHER, SELFPAY ==
[2024-12-27 12:25] LABS: ALT 33 U/L (14-59); AST 31 U/L (15-37); Albumin 4.1 g/dL (3.4-5.0); Alkaline Phosphatase 109 U/L (46-116); BUN 9 mg/dL (7-18); Bilirubin, Total 0.5 mg/dL (0.2-1.0); CREATININE 0.8 mg/dL (0.55-1.02); Calcium 9.7 mg/dL (8.5-10.1); Calculated LDL 113 mg/dL (<100); Chloride 105 mmol/L (98-107); Cholesterol 235 mg/dL (<200); Glucose 91 mg/dL (74-106); HDL Cholesterol 114 mg/dL (>or=50); Potassium 3.6 mmol/L (3.5-5.1); Sodium 142 mmol/L (136-145); Total Protein 7.6 g/dL (6.4-8.2); Triglyceride 44 mg/dL (<150)
== END 2024-12-27 02:05 | disposition home or self-care (01) ==
LOC: LOS 02:04
PROVIDERS: PCP Nurse Practitioner Family; Visit Provider Nurse Practitioner Family
DX: Z13.220 Encounter for screening for lipoid disorders (principal)
CPT/HCPCS: 36415; 80053; 80061

== ENCOUNTER 2025-05-22 07:58 | Outpatient (CLI) | payer OTHER, SELFPAY ==
--- NOTE | 2025-05-22 05:45 | DI.MAMMO_ITS ---
Exam(s) MAMMO SCREENING EXAM: MAMMO SCREENING CLINICAL HISTORY: screening,z12.39 TECHNIQUE: Mammograms were interpreted according to the usual protocol including computer analysis with CAD system, tomosynthesis and C-view imaging. COMPARISON: 2020 and 2022 FINDINGS: The breasts are composed of scattered fibroglandular densities, Breast Density category B. No suspicious masses or suspicious microcalcifications are seen. No skin thickening or abnormal axillary lymph nodes are seen. There has been no significant change from prior exams. IMPRESSION: BI-RADS Category 1, Negative mammogram Yearly screening mammography is recommended. Breast Density - Category B - There are scattered areas of fibroglandular density. Breast density Category C or D implies that the patient has dense breast tissue. Dense breast tissue can make it harder to find cancer on a mammogram. Dense breast tissue is also associated with an increased risk of breast cancer. This information about the result of the mammogram report was provided to the patient to raise their awareness. Use this report when you speak with the patient about their risks for breast cancer, which includes their family history. At that time, you may recommend additional screening tests (Ultrasound or MRI) as these tests may add significant information. A negative radiographic report should not delay biopsy if a dominant or clinically suspicious mass is present. Up to ten percent of cancers are not identified on mammography. A negative report may reinforce clinical impression. Adenosis and dense breasts may obscure an underlying neoplasm. False positive reports average 6 to 10%. Patient will receive a letter notifying them of these results.
== END 2025-05-22 08:18 ==
LOC: DI 07:59
PROVIDERS: PCP Nurse Practitioner Family; Visit Provider Nurse Practitioner Family
DX: Z12.31 Encounter for screening mammogram for malignant neoplasm of breast (principal); R92.323 Mammographic fibroglandular density, bilateral breasts
CPT/HCPCS: 77063; 77067